=== PATIENT | male | born 1975 | race Caucasian/White ===

== ENCOUNTER 2018-01-14 10:25 | Emergency (ER) | END 2018-01-14 20:05 | disposition short-term general hospital (02) ==

== ENCOUNTER 2018-09-05 13:59 | Day surgery (SDC) | payer OTHER ==
[~2018-09-05] VITALS: Ht 167.6 cm; Wt 101.9 kg
[2018-09-05 15:03] VITALS: Ht 167.6 cm; Wt 101.9 kg
[2018-09-05 15:06] VITALS: BP 132/73; PULSE 60
--- NOTE | 2018-09-05 15:08 | PREAC ---
Date/Time of Note Date/Time of Note DATE: 09/05/18 TIME: 15:07 Anesthesia Eval and Record Evaluation Time Pre-Procedure Interview DATE: 09/05/18 TIME: 15:07 Age 43 Sex male NPO: 8 hrs Preoperative diagnosis hx of colostomy Planned procedure colonoscopy Past Medical History Past Medical History: Includes GI: Obesity Surgery & Anesthesia Issues No known issue Meds Anticoagulation: No Beta Sue within 24 hr: No Reason Beta Sue not given: Pt. not on B-Sue Reported Medications [None] No Conflict Check 09/05/18 Meds reviewed: Yes Allergies Coded Allergies: No Known Allergy (Unverified , 01/14/18) Allergies Reviewed: Yes Labs/Studies Labs Reviewed: Reviewed by anesthesiologist test: N/A Pre-procedure Exam Airway: Adequate mouth opening, Adequate thyromental dist Mallampati: Mallampati II Teeth: Normal Lung: Normal Heart: Normal ASA Physical Status ASA physical status: 2 Emergency: None Pre-operative Attestations Prior to commencing anesthesia and surgery, the patient was re-evaluated, there was verification of: *The patient's identity *The results of appropriate recent lab work and preoperative vital signs *The above evaluation not changing prior to induction *Anesthetic plan, risk benefits, alternative and complications discussed with patient/family; questions answered; patient/family understands, accepts and wishes to proceed. KINGA KELLY DO Sep 05, 2018 15:08
[2018-09-05] MEDS ORDERED: FENTAnyl 50 MCG/ML VIAL ONE (15:09)
[2018-09-05] MEDS ORDERED: LIDOCAINE 2% (SDV) 5 ML INJ ONE (15:09)
[2018-09-05] MEDS ORDERED: PROPOFOL 200 MG INJ ONE (15:09)
[2018-09-05] MEDS ORDERED: PROPOFOL 40 ML ONE (15:09)
[2018-09-05] MEDS ORDERED: MIDAZOLAM 1 MG/ML 2 ML INJ ONE (15:09)
--- NOTE | 2018-09-05 15:40 | PAC ---
Date/Time of Note Date/Time of Note DATE: 09/05/18 TIME: 15:40 Post-Anesthesia Notes Post-Anesthesia Note Last documented vital signs 120/55 69 99% 19 Activity: WNL Respiratory function: WNL Cardiovascular function: WNL Mental status: Baseline Pain reasonably controlled: Yes Hydration appropriate: Yes Nausea/Vomiting absent: Yes KINGA KELLY DO Sep 05, 2018 15:40
[2018-09-05 15:59] VITALS: BP 130/75
== END 2018-09-05 17:46 | disposition home or self-care (01) ==
LOC: GIL 13:59
PROVIDERS: ATTEND Internal Medicine Gastroenterology
DX: Z12.11 Encounter for screening for malignant neoplasm of colon (principal); K57.30 Diverticulosis of large intestine without perforation or abscess without bleeding; E66.9 Obesity, unspecified; Z68.36 Body mass index [BMI] 36.0-36.9, adult
CPT/HCPCS: 45380; 88305; J2250; J3010; Z7610